=== PATIENT | male | born 1960 | race Caucasian/White ===

== ENCOUNTER 2017-07-01 14:45 | Inpatient (IN) | payer OTHER ==
[~2017-07-01] VITALS: Ht 188 cm; Wt 77.1 kg
--- NOTE | 2017-07-01 15:15 | NUR ---
Pre-Assessment Marine Painter asked to assess pt for appropriateness for admission to [facility]. Marine Painter encounters pt in intake office. Pt is disheveled and malodorous. Pt is A/O and and able to make needs known. Slow top respond and concrete in thought process, clear of speech and content. Pt endorses having had last drink last evening and has symptoms of withdrawals, chills, sweats, anxiety, GI discomfort and tremors, initial CIWA 14. Pt meets criteria and is in need of medical management for ETOH withdrawals. Will continue to monitor, support and encourgae according to plan of care.
--- NOTE | 2017-07-01 15:30 | NUR ---
Admission Pt is admitted to [facility] for medical management of ETOH withdrawals. Pt presents per wheelchair, due to unsteady gait. Pt is malodorous and disheveled. Neutral affect with anxious mood, A/O and able to make needs known. [place] in thought process and slow to respond. Pt endorses drinking 18 beers daily, and has been for approximately 1 year. Endorses having last drinks last night, 06/30/17. Pt presents with nausea, anxiety, tremors and sweats, initial CIWA 14. Pt sees Dr. Parr in [place] for his Ritalin prescriptions, due to ADD. This is pt's first attempt at sobriety and has never been to treatment. Pt endorses a PMH of HTN and PPH of ADD. Denies any history of seizures. Pt denies any HI/SI or A/VH or any other associated symptoms. Pt denies any previous psychiatric hospitalizations or 5150's or any previous suicide attempts. Pt states he is here today, " because I am an alcoholic." Addendum: 07/01/17 at 1822 by ROSLYN MIGUEL RN Pt admitted to having fallen up to twice within the last 2 days and has a couple of scabs/lacerations on his head. Pt left foot is pale and appears to have been "water logged". As hand sign writer was taking pictures of pt's foot, pt asked hand sign writer, "could that be from peeing down my leg and not showering for a week?" Pictures taken and placed in chart. Wound care order placed for possible fungus.
[2017-07-01] MEDS ORDERED: ONDANSETRON ODT 4 MG TAB.RAPDIS SL PRN (15:45)
[2017-07-01] MEDS ORDERED: ONDANSETRON 4 MG/2 ML VIAL IM PRN (15:45)
[2017-07-01] MEDS ORDERED: LOPERAMIDE HCL 2 MG CAPSULE PO PRN (15:45)
[2017-07-01] MEDS ORDERED: MAGNESIUM HYDROXIDE 30 ML LIQUID UDC PO PRN (15:45)
[2017-07-01] MEDS ORDERED: ACETAMINOPHEN 325 MG TABLET PO PRN (15:45)
[2017-07-01] MEDS ORDERED: LORAZEPAM 1 MG TABLET PO PRN (15:45)
[2017-07-01] MEDS ORDERED: NICOTINE POLACRILEX 4 MG GUM-PK OF TEN BC PRN (15:45)
[2017-07-01] MEDS ORDERED: NICOTINE 14 MG/24HR PATCH TD PRN (15:45)
[2017-07-01] MEDS ORDERED: MAG HYDROX/AL HYDROX/SIMETH 30 ML LIQUID UDC PO PRN (15:45)
[2017-07-01] MEDS ORDERED: diphenhydrAMINE 50 MG CAPSULE PO PRN (15:45)
[2017-07-01] MEDS ORDERED: MIRALAX 17 GM POWD.PACK PO PRN (15:45)
[2017-07-01] MEDS ORDERED: THIAMINE HCL 200 MG/2 ML VIAL IM ONE (15:45)
[2017-07-01] MEDS ORDERED: IBUPROFEN 400 MG TABLET PO PRN (15:45)
[2017-07-01] MEDS ORDERED: LORAZEPAM 2 MG/1 ML VIAL IM PRN (15:45)
[2017-07-01] MEDS: LORAZEPAM 1 MG TABLET PO SCH ×2 (16:15→20:11)
[2017-07-01] MEDS: CLONIDINE HCL 0.1 MG TABLET PO PRN ×2 (16:15→23:15)
--- NOTE | 2017-07-01 16:15 | NUR ---
PRN Clonidine and Imodium Pt complain of first bout of diarrhea and BP is 171/99 on admission, with history of HTN. Asphalt Distributor Tender administers Clonidine(HTN) and Imodium(diarrhea) per order with pt tolerating well. Will continue to monitor, support and encourage according to plan of care.
[2017-07-01 16:20] LABS: *AMPHETAMINE, URINE NEGATIVE (NEGATIVE); *BARBITURATE, URINE NEGATIVE (NEGATIVE); *CANNABINOID, URINE NEGATIVE (NEGATIVE); *COCCAINE, URINE NEGATIVE (NEGATIVE); *OPIATE, URINE NEGATIVE (NEGATIVE); *PHENCYCLIDINE SCREEN,URINE NEGATIVE (NEGATIVE)
[2017-07-01 16:49] LABS: BASOPHILS # (AUTO) 0.1 K/uL (0.0-8.0); BASOPHILS % (AUTO) 0.5 % (0.0-2.0); EOSINOPHILS % (AUTO) 0.1 % (0.0-7.0); HEMATOCRIT 44.3 % (36.7-47.1); HEMOGLOBIN 15.1 g/dL (12.5-16.3); LYMPHOCYTES # (AUTO) 0.8 K/uL (20.0-40.0); LYMPHOCYTES % (AUTO) 6.4 % (20.5-51.5); MEAN CORPUSCULAR HEMOGLOBIN 34.1 uug (23.8-33.4); MEAN CORPUSCULAR HGB CONC 34 g/dL (32.5-36.3); MEAN CORPUSCULAR VOLUME 99.8 fL (73.0-96.2); MONOCYTES # (AUTO) 1.3 K/uL (2.0-10.0); MONOCYTES % (AUTO) 9.8 % (0.0-11.0); NEUTROPHILS % (AUTO) 83.2 % (38.5-71.5); PLATELET COUNT (AUTO) 157 K/uL (152-348); RED BLOOD CELL COUNT(AUTO) 4.44 MIL/uL (4.06-5.63); WHITE BLOOD COUNT (AUTO) 13.2 K/uL (3.6-10.2)
[2017-07-01 17:04] LABS: MAGNESIUM 1.8 mg/dL (1.8-2.4); POTASSIUM 4.2 mmol/L (3.5-5.1); TOTAL PROTEIN, SERUM 8.5 g/dL (6.4-8.2)
[2017-07-01 17:15] VITALS: BP 146/85
--- NOTE | 2017-07-01 17:15 | NUR ---
PRN Re-Assessment Pt is resting in room, with eyes closed. No further complaints of diarrhea. BP on recheck is 146/85. Will continue to monitor, support and encourage according to plan of care.
[2017-07-01] MEDS ORDERED: LOSA100T15 PO (18:29)
[2017-07-01] MEDS ORDERED: METH20TA PO (18:29)
--- NOTE | 2017-07-01 19:12 | NUR ---
End of Shift Rice Drier Operator provided report on 56 year old male admitted to [facility] this afternoon by automobile service writer, for medical management of ETOH withdrawals. Pt endorses NKDA, full code and regular diet. Endorses PMH of HTN, PPH of ADD. Started on an Ativan taper and administered Clonidine and Imodium PRN on my shift. Last CIWA 11 recorded at 1630. Bed in low position, with wheels locked and side rails up x2.
--- NOTE | 2017-07-01 19:30 | NUR ---
START OF SHIFT Pt is a 56 y/o male admitted today for ETOH withdrawal. Pt is on a 5 day Ativan taper that started on today, tolerating well. Last CIWA 11 and PRN Clonidine and Imodium administered during day shift. Pt is on a 1:1 for unsteady gait. Upon assessment pt presents with anxiety, severe gross tremors, chills, sweats, flushed skin, restlessness, increased BP and HR, unstable gait, intermittent nausea, lower extremity numbness, difficulty concentrating, difficulty falling and staying asleep, diarrhea, unkempt room and is odorous and withdrawn. Encouraged pt to take a shower, pt refused. Pt has scabes/lacerations on scalp, excoriation on whole left foot and a bruised left eye. Bottom of left foot presents with white/yellow maceration with pin shaped brown spots and is odorous. Arch of foot has erythema. Wound consult ordered. Pt does not recall falling, states "I don't remember what happened because I drank way too much, I think it was from two days ago." In regards to left foot, pt states "I peed down my leg and I haven't changed my socks in a week." Medications due. Safety measures in place. Call light within reach. Will continue to monitor.
[2017-07-01 20:00] VITALS: BP 159/96
--- NOTE | 2017-07-01 20:11 | NUR ---
PRN BENADRYL ADMINISTRATION Pt requests sleep aid. Safety measures in place. Call light within reach. Will continue to monitor.
--- NOTE | 2017-07-01 21:11 | NUR ---
PRN BENADRYL REASSESSMENT Pt laying in bed with eyes closed, medication noted effective. Safety measures in place. Call light within reach. Will continue to monitor.
[2017-07-01] MEDS: LORAZEPAM 1 MG TABLET PO PRN (22:16)
--- NOTE | 2017-07-01 22:16 | NUR ---
PRN ATIVAN 1 MG ADMINISTRATION CIWA 11, orders to give Ativan 1 mg. Pt woke up and presents with anxiety, restlessness, gross tremors and lower extremity numbness. Safety measures in place. Call light within reach. Will continue to monitor.
--- NOTE | 2017-07-01 23:15 | NUR ---
PRN ATIVAN REASSESSMENT AND CLONIDINE ADMINISTRATION CIWA 10, pt still presents with anxiety, restlessness, tremors and lower extremity numbness, reports mild improvement in anxiety. BP 147/90 and HR 111, orders to give Clonidine. Safety measures in place. Call light within reach. Will continue to monitor.
[2017-07-02] VITALS: BP 141/91
--- NOTE | 2017-07-02 00:15 | NUR ---
PRN CLONIDINE REASSESSMENT BP 141/91 HR 85, BP reduced slightly. Safety measures in place. Call light within reach. Will continue to monitor.
--- NOTE | 2017-07-02 00:24 | NUR ---
PRN ATIVAN 2 MG ADMINISTRATION CIWA 13. Pt reports restlessness, anxiety, tremors, chills, sweats, agitation and lower extremity numbness. Safety measures in place. Call light within reach. Will continue to monitor.
--- NOTE | 2017-07-02 01:24 | NUR ---
PRN ATIVAN 2 MG REASSESSMENT Pt laying in bed with eyes closed, medication noted effective. Safety measures in place. Call light within reach. Will continue to monitor.
[2017-07-02 04:00] VITALS: BP 143/93
--- NOTE | 2017-07-02 04:00 | NUR ---
CIWA DEFERRED Pt laying in bed with eyes closed, CIWA deferred, to be assessed when pt is awake per orders. Respirations even and unlabored. Safety measures in place. Call light within reach. Will continue to monitor.
--- NOTE | 2017-07-02 07:10 | NUR ---
END OF SHIFT Pt is a 56 y/o male admitted on 07/01/17 for ETOH withdrawal. Pt is on a 5 day Ativan taper that started on 07/01/17, tolerating well. Pt is on a 1:1 for unsteady gait/safety. Pt presented with anxiety, severe gross tremors, chills, sweats, flushed skin, restlessness, increased BP and HR, unstable gait, intermittent nausea, lower extremity numbness, difficulty concentrating, difficulty falling and staying asleep, diarrhea, unkempt room and is odorous and withdrawn. Encouraged pt to take a shower, pt refused. Pt has scabs/lacerations on scalp, excoriation on whole left foot and a bruised left eye. Bottom of left foot presents with white/yellow maceration with pin shaped brown spots and is odorous. Wound consult ordered. Pt woke up multiple times throughout shift. Scheduled medications and PRN Benadryl, Ativan 1 mg, Ativan 2 mg and Clonidine administered, effective in S/S of withdrawal AEB CIWA 16 lowered to CIWA 13 during shift. Pt slept 6 hours. Intake 1300 ml, void x 1, stool x 0. Safety measures in place. 1:1 sitter at bedside. Pts needs have been met. Endorsed to day shift nurse.
--- NOTE | 2017-07-02 07:11 | NUR ---
Start of Shift Puncher received report on 56 year old male admitted to [facility] on 07/01/17 for medical management of ETOH withdrawals. Pt endorses NKDA, full code and regular diet. PMH of HTN and PPH of ADD. Pt currently on an Ativan taper with last CIWA 13 per NOC. PRN Benadryl(insomnia), Ativan 1mg(withdrawals), Ativan 2mg(withdrawals) and Clonidine(HTN) administered on NOC, per report. Puncher encounters pt in pts room, pt is resting with eyes closed, rise and fall of chest noted. Even and unlabored respirations. Bed in low position, with wheels locked, and side rails up x2. Will continue to monitor, support and encourage according to plan of care.
[2017-07-02 08:45] VITALS: BP 149/94
[2017-07-02] MEDS ORDERED: LOSARTAN POTASSIUM 50 MG TABLET PO SCH ×2 (09:00→21:00)
[2017-07-02] MEDS ORDERED: TUBERCULIN,PURIF.PROT.DERIV. 5 TU/0.1 ML TEST ID ONE (09:00)
[2017-07-02] MEDS: FOLIC ACID 1 MG TABLET PO SCH (09:25)
[2017-07-02] MEDS: LOPERAMIDE HCL 2 MG CAPSULE PO PRN (09:26)
[2017-07-02] MEDS: THIAMINE HCL 100 MG TABLET PO SCH (09:26)
[2017-07-02] MEDS: LORAZEPAM 1 MG TABLET PO SCH ×3 (09:26→20:15)
[2017-07-02] MEDS: MULTIVITAMINS,THERAPEUTIC TABLET PO SCH (09:26)
--- NOTE | 2017-07-02 09:26 | NUR ---
PRN Imodium Pt requested Imodium for diarrhea, service writer administered per order with pt tolerating well. Will continue to monitor, support and encourage according to plan of care.
--- NOTE | 2017-07-02 10:26 | NUR ---
PRN Re-Assessment Pt has not had any BM since administration of medication. Will continue to monitor, support and encourage according to plan of care.
[2017-07-02] MEDS ORDERED: hydrALAZINE HCL 50 MG TABLET PO PRN (12:00)
[2017-07-02 12:43] VITALS: BP 144/93
[2017-07-02 16:56] VITALS: BP 132/93
--- NOTE | 2017-07-02 18:58 | NUR ---
End of Shift Wind Turbine Engineer provided report on 56 year old male admitted to [facility] on 07/01/17 for medical management of ETOH withdrawals. Pt endorses NKDA, full code and regular diet. PMH of HTN and PPH of ADD. Pt currently on 1:1 staffing, d/t unsteady gait and unsteady transfer. Pt currently on an Ativan taper with last CIWA 8 at 1630. PRN Imodium(Diarrhea) administered this shift. Pt has edisodes of diarrhea, has had chills and sweats and anxiety, tremors have improved. Pt is slow to respond, matter of fact, concrete in nature. Flat affect with anxious mood. Bed in low position, with wheels locked, and side rails up x2.
--- NOTE | 2017-07-02 19:30 | NUR ---
START OF SHIFT Pt is a 56 y/o male admitted on 07/01/17 for ETOH withdrawal. Pt is on a 5 day Ativan taper that started on today, tolerating well. Last CIWA 8 and PRN Imodium administered during day shift. Pt is on a 1:1 for unsteady gait/safety. Upon assessment pt presents with anxiety, tremors, intermittent chills, intermittent sweats, flushed skin, restlessness, increased BP and HR, flat affect, unstable gait, diarrhea, lower extremity numbness, difficulty concentrating, difficulty falling and staying asleep, unkempt room and is odorous and withdrawn. Pt has scabs/lacerations on scalp, excoriation on whole left foot and a bruised left eye. Bilateral feet presents with fungal infection, started on Lamisil cream today. Pt uses wheelchair for mobility. Medications due. Safety measures in place. Call light within reach. Will continue to monitor.
[2017-07-02 20:00] VITALS: BP 145/85
[2017-07-02] MEDS: TERBINAFINE CREAM 24 GM TUBE TP SCH (20:15)
[2017-07-02] MEDS: TRAZODONE 50 MG TABLET PO PRN (20:15)
--- NOTE | 2017-07-02 20:15 | NUR ---
PRN TRAZODONE ADMINISTRATION Pt requests sleep aid. Safety measures in place. Call light within reach. Will continue to monitor.
--- NOTE | 2017-07-02 21:15 | NUR ---
PRN TRAZODONE REASSESSMENT Pt laying in bed with eyes closed, medication noted effective. Safety measures in place. Call light within reach. Will continue to monitor.
[2017-07-03] VITALS (8 sets, daily range): BP systolic 106–145; BP diastolic 72–105
--- NOTE | 2017-07-03 | NUR ---
PRN ATIVAN 1 MG AND CLONIDINE ADMINISTRATION BP 140/97 HR 105. CIWA 11, orders to give Ativan 1 mg. Pt presents with restlessness, agitation, anxiety, tremors. Safety measures in place. Call light within reach. Will continue to monitor. Addendum: 07/03/17 at 0117 by RAUL ERVIN RN TIME AMEND FOR 011
[2017-07-03] MEDS: LORAZEPAM 1 MG TABLET PO PRN ×2 (01:11→03:38)
[2017-07-03] MEDS: CLONIDINE HCL 0.1 MG TABLET PO PRN ×2 (01:11→12:17)
--- NOTE | 2017-07-03 02:11 | NUR ---
PRN ATIVAN AND CLONIDINE REASSESSMENT BP 136/84, HR 82. Pt laying in bed with eyes closed, CIWA deferred for reassessment of Ativan. Safety measures in place. Call light within reach. Will continue to monitor.
[2017-07-03] MEDS: LOPERAMIDE HCL 2 MG CAPSULE PO PRN ×2 (03:54→20:11)
--- NOTE | 2017-07-03 03:54 | NUR ---
PRN ATIVAN 1 MG AND IMODIUM ADMINISTRATION CIWA 11, pt presents with anxiety, restlessness and tremors. PRN Ativan 1 mg administered at 0338. Pt had an episode of watery diarrhea. Pt unable to reach bathroom. Pt cleaned and pat dry. Skin dry and intact. Safety measures in place. Call light within reach. Will continue to monitor. Imodium administered at 0354. Safety measures in place. Call light within reach. Will continue to monitor.
--- NOTE | 2017-07-03 04:54 | NUR ---
PRN ATIVAN AND IMODIUM REASSESSMENT Pt laying in bed with eyes closed, medications noted effective. No further episodes of diarrhea. Safety measures in place. Call light within reach. Will continue to monitor.
--- NOTE | 2017-07-03 07:01 | NUR ---
END OF SHIFT Pt is a 56 y/o male admitted on 07/01/17 for ETOH withdrawal. Pt is on a 5 day Ativan taper that started on 07/01/17, tolerating well. Pt presented with anxiety, tremors, intermittent chills, intermittent sweats, flushed skin, restlessness, increased BP and HR, flat affect, unstable gait, diarrhea, lower extremity numbness, difficulty concentrating, difficulty falling and staying asleep, unkempt room and is odorous and withdrawn. During episode of watery diarrhea, pt unable to make it to the toilet, pt cleaned and dried. Bilateral feet presents with fungal infection, started on Lamisil cream. Pt uses wheelchair for mobility. Scheduled medications and PRN Trazodone, Ativan 1 mg x 2, Clonidine and Imodium administered, effective in S/S of withdrawal AEB CIWA 14 lowered to CIWA 10 during shift. Pt slept 4 hours. Intake 1500 ml, void x 4, stool x 1. Safety measures in place. 1:1 sitter at bedside. Pts needs have been met. Endorsed to day shift nurse.
--- NOTE | 2017-07-03 07:20 | NUR ---
START OF SHIFT: PATIENT IS A 56 YR OLD MALE ADMITTED TO [facility] ON 07/01/17 FOR A MEDICALLY SUPERVISED WITHDRAWAL FROM ALCOHOL, HE IS ON A 5 DAY ATIVAN TAPER AND THIS IS DAY 3. PATIENT IS ON A 1:1 FOR SAFETY AND UNSTEADY GAIT. PATIENT HAD 1 DOSE OF DIARRHEA ON PM SHIFT AND RECEIVED IMMODIUM PO. PATIENT IS AWAKE IN BED AT THIS TIME AND PRESENTS WITH A BLACK LEFT EYE AND BRUISES ON HIS FACE WHICH HE SAYS " PROBABLY WHEN I FELL AT HOME BEFORE I GOT HERE ". PRN MEDS REQUIRED ON PM SHIFT : CLONIDINE, ATIVAN 1MG X 2, IMMODIUM AND TRAZADONE. PT SLEPT FOR 4 HOURS AND LAST CIWA WAS 10 @ 0400. PATIENT APPEARS ANXIOUS WITH MODERATE HAND TREMORS AND RESTLESSNESS. WILL CONTINUE TO FOLLOW MD PLAN OF CARE.
[2017-07-03] MEDS: FOLIC ACID 1 MG TABLET PO SCH (08:40)
[2017-07-03] MEDS: MULTIVITAMINS,THERAPEUTIC TABLET PO SCH (08:40)
[2017-07-03] MEDS: THIAMINE HCL 100 MG TABLET PO SCH (08:40)
[2017-07-03] MEDS: LOSARTAN POTASSIUM 50 MG TABLET PO SCH (08:41)
[2017-07-03] MEDS: TERBINAFINE CREAM 24 GM TUBE TP SCH ×2 (08:43→20:15)
[2017-07-03] MEDS ORDERED: LORAZEPAM 1 MG TABLET PO SCH ×2 (09:00→21:00)
--- NOTE | 2017-07-03 12:15 | NUR ---
PRN HYDRALAZINE/CLONIDINE HYDRALAZINE 50MG PO AND CLONIDINE 0.1MG PO GIVEN FOR BP 145/102 WILL RECHECK IN 1 HR
[2017-07-03] MEDS: LORAZEPAM 1 MG TABLET PO SCH ×2 (12:16→16:32)
--- NOTE | 2017-07-03 13:15 | NUR ---
PRN REASSESS BP 114/82 CLONIDINE 0.1MG PO AND HYDRALAZINE 50MG PO EFFECTIVE, WILL CONTINUE TO MONITOR
--- NOTE | 2017-07-03 13:33 | NUR ---
STOOL SAMPLE/C DIFF TO BE COLLECTED PER MD ORDER DUE TO PT DIARRHEA PLS COLLECT STOOL SAMPLE TO SEND TO LAB FOR C DIFF
--- NOTE | 2017-07-03 14:35 | NUR ---
WOUND CARE CONSULT: PT PRESENTS WITH DRY SCABS TO TOP OF HEAD AND DOTTED RASH TO FEET. PT USING LAMISIL FOR FEET. DEFER TO MD. WILL SEE PRN. NO OPEN WOUNDS NOTED. PT REFUSED FULL SKIN ASSESSMENT OF BACK AND BUTTOCKS. Addendum: 07/03/17 at 1436 by JAYDEN PEOPLES RN Amended: Links added.
--- NOTE | 2017-07-03 15:42 | NUR ---
STOOL TO LAB STOOL SAMPLE COLLECTED AND SENT TO LAB
[2017-07-03] MEDS ORDERED: AMLODIPINE 5 MG TABLET PO ONE (17:00)
--- NOTE | 2017-07-03 18:41 | NUR ---
END OF SHIFT : PATIENT IS A 56 YR OLD MALE ADMITTED TO [facility] ON 07/01/17 FOR A MEDICALLY SUPERVISED WITHDRAWAL FROM ALCOHOL. PATIENT PRESENTS WITH A FLAT AFFECT, SEVERE BILATERAL HAND TREMORS, RESTLESSNESS AND UNSTEADY GAIT. PATIENT IS ON A 5 DAY ATIVAN TAPER AND THIS IS DAY 3. REPORT FROM PM SHIFT THAT PATIENT HAD DIARRHEA X2 WITHIN LAST 2 DAYS, MD ORDERED STOOL SAMPLE TO BE COLLECTED FOR C DIFF TESTING, STOOL COLLECTED AND SENT TO LAB @ 3108. PT EVALUATED PATIENTS GAIT TODAY AND WILL REASSESS ON A DAILY BASIS, MD ORDER TO USE WHEELCHAIR FOR TRANSFERS. PATIENT HAS HTN , PRN MEDS GIVEN THIS SHIFT CLONIDINE AND HYDRALAZINE WITH POSITIVE RESULTS IN DECREASING BP. CONSULTS TODAY FROM TECHNICAL EDUCATION TEACHER AND WETLAND SCIENTIST REGARDING TOENAIL FUNGUS. PATIENT HAD A FLUID INTAKE THIS SHIFT OF 1500 ML, 2 VOIDS AND 2 BM. LAST CIWA 10@ 1600. CONTINUE TO FOLLOW MD PLAN OF CARE.
--- NOTE | 2017-07-03 19:15 | NUR ---
START OF SHIFT NOTE Received endorsement from day shift nurse. Client was in room and is a/o to person, place, time, and situation. Client is on 1:1 observation for fall precautions/unsteady gait. Client appears unkempt and unshaven, and his room is disheveled. Client presents with visibly severe tremors, clammy skin, anxious mood, and agitated. Client has a black eye (left) and fungus on his feet, most noticeable on his toes. Client denies s/i and h/i. Client received no PRN's during the previous shift. V/S remained stable throughout the day. Last blood pressure was 127/88 @ 1600. Last CIWA 10 @ 1600. Call light within reach and bed in low position.
--- NOTE | 2017-07-03 20:11 | NUR ---
PRN Imodium given after pt. had 1 bought of watery diarrhea. Will reassess in 1 hour. Addendum: 07/03/17 at 2238 by CIARRA WRIGHT RN Imodium 2mg given.
[2017-07-03] MEDS: TRAZODONE 50 MG TABLET PO PRN (20:48)
--- NOTE | 2017-07-03 20:48 | NUR ---
PRN Trazadone 50mg given for sleep.
--- NOTE | 2017-07-03 21:11 | NUR ---
Reassessed pt. after giving Imodium 2mg. Diarrhea relieved no more incidents.
--- NOTE | 2017-07-03 21:11 | NUR ---
START OF SHIFT NOTE Received endorsement from day shift nurse. Client was in room and is a/o to person, place, time, and situation. Client is on 1:1 observation for fall precautions/unsteady gait. Client appears unkempt and unshaven, and his room is disheveled. Client presents with visibly severe tremors, clammy skin, anxious mood, and agitated. Client has a black eye (left) and fungus on his feet, most noticeable on his toes. Client denies s/i and h/i. Client received no PRN's during the previous shift. V/S remained stable throughout the day. Last blood pressure was 127/88 @ 1600. Last CIWA 10 @ 1600. Call light within reach and bed in low position. Addendum: 07/03/17 at 2237 by CIARRA WRIGHT RN ERROR WRONG TIME.
--- NOTE | 2017-07-03 21:46 | NUR ---
Reassessed pt. after giving Trazadone 50mg. Pt is sleeping well.
--- NOTE | 2017-07-04 | NUR ---
CIWA deferred pt. Pt. eyes closed, respirations even and unlabored.
--- NOTE | 2017-07-04 04:08 | NUR ---
CIWA and V/S deferred. Pt.'s eyes closed and breathing is unlabored and even.
--- NOTE | 2017-07-04 06:48 | NUR ---
END OF SHIFT NOTE Endorsed patient to oncoming nurse. Pt is in his room and is a/o to person, place, time, and situation. Pt is on 1:1 observation for fall precautions/unsteady gait. Pt appears unkempt and unshaven. Pt continues to present with visibly severe tremors, clammy skin, anxious mood, and agitated. Pt. has abrasion on right foot, MD has ordered triple antibiotic ointment to start 07/04. Pt. has blood blister on left foot, MD has ordered betadine swabs to start on 07/04. Pt was given PRN Imodium 2mg @2010 for 1 bought of liquid diarrhea and reassessed @ 2110 with no further incidents, Pt. was also given PRN Trazadone 50mg @ 2047 for sleep and when reassessing @2147 pt.s eyes were closed and breathing was even and unlabored. Pt. had stool sample taken and sent to lab for C-Diff test. Pt.s fluid intake [id number], voided 2 times, and had 2 bowel movement. Pt.s V/S remained stable throughout shift. Pt. slept 7 hours. Last CIWA 13 @ 1999. Call light is within reach and Pt. will continue to be monitored.
--- NOTE | 2017-07-04 07:35 | NUR ---
START OF SHIFT PT IS A 56 Y/O M ADMITTED ON 07/01/17 FOR MEDICALLY SUPERVISED ETOH WITHDRAWAL. PT IS ON A 5 DAY ATIVAN TAPER STARTED ON 07/01/17 AND TOLERATING WELL. PT CONTINUES ON A 1:1 SITTER FOR UNSTEADY GAIT. PT HAS A UNSHAVEN, DISHEVELED APPEARANCE, PT IS A/OX4, RESPIRATIONS EVEN AND UNLABORED, PT PRESENTS GROSS/FINE TREMORS, ANXIETY, RESTLESSNESS, AGITATION, DIAPHORESIS, CLAMMY SKIN. PT HAS HAD AN EPISODE OF LIQUID DIARRHEA; UPON ENTERING ROOM DIARRHEA WAS ON BED AND ON FLOOR. PT HAS A BLACK EYE ON L EYE, ABRASIONS ON R FOOT AND BLOOD BLISTER ON LEFT FOOT. LAST CIWA 13 @1999. ENCOURAGED PT TO INCREASE FLUIDS FOR HYDRATION AND TO FACILITATE IN DETOX. SIDE RAILS UPX2, BENJAMÍN N LOW POSITION, CALL LIGHT WITHIN REACH. SAFETY MEASURES IN PLACE. WILL CONTINUE TO MONITOR.
[2017-07-04 08:00] VITALS: BP 136/86
[2017-07-04] MEDS: MULTIVITAMINS,THERAPEUTIC TABLET PO SCH (08:21)
[2017-07-04] MEDS: FOLIC ACID 1 MG TABLET PO SCH (08:22)
[2017-07-04] MEDS: LOPERAMIDE HCL 2 MG CAPSULE PO PRN (08:22)
[2017-07-04] MEDS: AMLODIPINE 5 MG TABLET PO SCH (08:22)
[2017-07-04] MEDS: THIAMINE HCL 100 MG TABLET PO SCH (08:22)
[2017-07-04] MEDS: LOSARTAN POTASSIUM 50 MG TABLET PO SCH (08:23)
[2017-07-04] MEDS: TERBINAFINE CREAM 24 GM TUBE TP SCH ×2 (08:26→21:04)
[2017-07-04] MEDS ORDERED: LORAZEPAM 1 MG TABLET PO SCH ×3 (09:00→21:00)
[2017-07-04] MEDS: NEOMY/BACITRAC/POLYMI OINT 28.35 GM TUBE TOP SCH (09:11)
[2017-07-04] MEDS ORDERED: PRAZOSIN HCL 1 MG CAPSULE PO PRN (11:30)
[2017-07-04 12:00] VITALS: BP 133/88
[2017-07-04 12:13] LABS: HEPATITIS B SURFACE AG Negative (Negative)
--- NOTE | 2017-07-04 15:00 | NUR ---
C-DIFF CULTURE RESULTS NEGATIVE.
[2017-07-04 16:00] VITALS: BP 116/77
--- NOTE | 2017-07-04 18:47 | NUR ---
END OF SHIFT PT CONTINUES ON A 1:1 SITTER FOR UNSTEADY GAIT. PT AMBULATES IN WHEELCHAIR AND WALKER; PT RECEIVED A WALKER TODAY FROM PT. ENCOURAGED PT TO EXERCISE WALKER AROUND UNIT. PT'S LAST CIWA 12 @1600. PT HAS RECEIVED 0 PRNS DURING SHIFT. PT ATE 75/75/100% OF MEALS. FLUID INTAKE 1400 ML, VOIDED X4, BM X1. PT HAD 1 EPISODE OF DIARRHEA ON SHIFT. C-DIFF CULTURE IS NEG. WOUND TX HAS BEEN DONE DURING SHIFT ON R TOE AND LEFT FOOT. PT HAS BEEN COMPLIANT WITH MED REGIMEN AND TX PLAN. PT ATTENDED GROUPS. SAFETY MEASURES IN PLACE. WILL GIVE ENDORSEMENT TO WINCHMAN/CRANE OPERATOR.
[2017-07-04 20:00] VITALS: BP 114/79
--- NOTE | 2017-07-04 20:00 | NUR ---
Start of Shift Note Received a 56 y/o male px, admitted for medically supervised withdrawal from ETOH. Px was placed on 5 day Ativan taper started on 07/01/2017. Px is tolerating it. Last reported CIWA 12 by AM shift nurse. Px is on 1 to 1 for unsteady gait. During the rounds at 1999, px is awake on bed in fowlers position. Px appears disheveled, untidy, unshaven with dirty finger and toe nails. Unfinished drinks and snacks noticed all over the table. Soiled socks noted on the floor. Px stated "my anxiety now is 4/10". Bilateral hand tremors noted. Bed on lowest position, side rails up 2x and call light within reach. We'll continue to monitor.
[2017-07-04] MEDS: GABAPENTIN 300 MG CAPSULE PO SCH (21:04)
[2017-07-05] VITALS: BP 132/76
[2017-07-05 04:00] VITALS: BP 125/88
--- NOTE | 2017-07-05 04:00 | NUR ---
CIWA deferred CIWA deferred at 0000 and 0400 due to the px is asleep, to assess if the px is awake per doctor's order. We'll continue to monitor.
--- NOTE | 2017-07-05 07:06 | NUR ---
End of Shift Note During the shift, no PRN medication given. Px is still on 1 to 1 for unsteady gait. Pxs oral intake is 1,500 ml, voided 3x, BM 1x. Px slept for total of 7 hours. At 0630, px is asleep on bed in right side lying position. Last CIWA 7. Bed on lowest position, side rails up 2x and call light within reach. We'll continue to monitor. Px endorsed to AM shift nurse.
--- NOTE | 2017-07-05 07:14 | NUR ---
START OF SHIFT: PATIENT IS A 56YR OLD MALE ADMITTED TO [facility] ON 07/01/17 FOR A MEDICALLY SUPERVISED WITHDRAWAL FROM ALCOHOL. HE IS ON AN ATIVAN TAPER AND THIS IS DAY 4. PATIENT DID NOT REQUIRED NOR REQUESTED ANY PRN MEDS ON NURSING SUPPORT WORKER. CONTINUE WITH TRIPLE ANTIBIOTIC CREAM TO RIGHT TOE AND BETADINE TO LEFT FOOT AND LAMISIL CREAM TO BOTH FEET AND TOES FOR FUNGAL INFECTION. PATIENT SLEPT FOR 7 HOURS AND IS CURRENTLY STILL ASLEEP , BREATHING EVEN AND UNLABORED, SITTER AT BEDSIDE FOR PATIENT SAFETY DUE TO UNSTEADY GAIT. LAST CIWA 7. CONTINUE TO FOLLOW MD PLAN OF CARE.
[2017-07-05 08:00] VITALS: BP 122/88
[2017-07-05] MEDS ORDERED: LORAZEPAM 1 MG TABLET PO SCH (09:00)
[2017-07-05] MEDS: THIAMINE HCL 100 MG TABLET PO SCH (09:12)
[2017-07-05] MEDS: MULTIVITAMINS,THERAPEUTIC TABLET PO SCH (09:12)
[2017-07-05] MEDS: FOLIC ACID 1 MG TABLET PO SCH (09:13)
[2017-07-05] MEDS: LOSARTAN POTASSIUM 50 MG TABLET PO SCH (09:13)
[2017-07-05] MEDS: AMLODIPINE 5 MG TABLET PO SCH (09:13)
[2017-07-05] MEDS: GABAPENTIN 300 MG CAPSULE PO SCH ×2 (09:13→21:02)
[2017-07-05] MEDS: TERBINAFINE CREAM 24 GM TUBE TP SCH ×2 (09:14→21:02)
[2017-07-05] MEDS: LORAZEPAM 1 MG TABLET PO SCH ×3 (09:15→21:02)
[2017-07-05] MEDS: NEOMY/BACITRAC/POLYMI OINT 28.35 GM TUBE TOP SCH (09:15)
[2017-07-05 12:00] VITALS: BP 113/73
[2017-07-05] MEDS ORDERED: LOSA50TA3 PO (12:50)
[2017-07-05] MEDS ORDERED: GABA-534 PO (12:50)
[2017-07-05] MEDS ORDERED: CLON0.1T14 PO (12:50)
[2017-07-05] MEDS ORDERED: TRAZ-144 PO (12:50)
[2017-07-05] MEDS ORDERED: IBUP-1953 PO (12:50)
[2017-07-05] MEDS ORDERED: AMLO5TAB2 PO (12:50)
[2017-07-05 16:00] VITALS: BP 110/66
--- NOTE | 2017-07-05 19:16 | NUR ---
END OF SHIFT : PATIENT IS A 56 YR OLD MALE ADMITTED TO [facility] ON 07/01/17 FOR A MEDICALLY SUPERVISED WITHDRAWAL FROM ALCOHOL. PATIENT PRESENTS WITH MODERATE BILATERAL HAND TREMORS, RESTLESSNESS AND UNSTEADY GAIT. PATIENT IS ON A 5 DAY ATIVAN TAPER AND THIS IS DAY 4. MD ORDER TO USE WHEELCHAIR FOR TRANSFERS DUE TO UNSTEADY GAIT, PT HAS BEEN EVALUATING PATIENT EACH DAY AND HIS GAIT IS MUCH IMPROVED AND IS ENCOURAGED TO AMBULATE IN HALLWAYS WITH WALKER. NO PRN MEDICATIONS WERE REQUIRED OR REQUESTED THIS SHIFT. PATIENT HAD A FLUID INTAKE THIS SHIFT OF 1500 ML, 2 VOIDS AND 0 BM. LAST CIWA 8 @ 1600. CONTINUE TO FOLLOW MD PLAN OF CARE. PATIENT CONTINUES TO BE ON A 1:1 WITH SITTER AT ALL TIMES. ENDORSED TO NIGHT NURSE.
--- NOTE | 2017-07-05 19:30 | NUR ---
Start of Shift Note Received a 56 y/o male px, admitted for medically supervised withdrawal from ETOH. Px was placed on 5 day Ativan taper started on 07/01/2017. Px is tolerating it. Last reported CIWA 8 by AM shift nurse. Px is still on 1 to 1 for unsteady gait. During the rounds at 1930, px is awake on bed in fowlers position. Px appears disheveled, untidy, with dirty finger and toe nails. Room is odorous. Unfinished drinks, snacks and soiled clothes noticed all over the room. Px stated "my anxiety now is 7/10". Bilateral hand tremors noted. Bed on lowest position, side rails up 2x and call light within reach. We'll continue to monitor.
[2017-07-05 20:00] VITALS: BP 129/88
[2017-07-05] MEDS: LOPERAMIDE HCL 2 MG CAPSULE PO PRN (20:06)
--- NOTE | 2017-07-05 20:06 | NUR ---
PRN Imodium Px complained of loose stool. Imodium 2 mg/cap, 1 cap given PO for diarrhea. We'll continue to monitor.
[2017-07-06] VITALS: BP 133/84
[2017-07-06] MEDS: TRAZODONE 50 MG TABLET PO PRN ×2 (00:23→21:46)
--- NOTE | 2017-07-06 00:23 | NUR ---
PRN Trazodone Px requested for sleeping pill. Px received Trazodone 50 mg/tab, 1 tab PO as PRN medicine for insomnia. We'll continue to monitor.
[2017-07-06 04:00] VITALS: BP 126/79
--- NOTE | 2017-07-06 04:00 | NUR ---
CIWA deferred CIWA deferred due to the px is asleep, to assess if the px is awake per doctor's order. We'll continue to monitor.
--- NOTE | 2017-07-06 07:13 | NUR ---
End of Shift Note During the shift at 2005, px received Imodium 2 mg PO for loose stool, it was effective. At 22, px received Trazodone 50 mg PO for insomnia. Px's oral intake is 1,300 ml, voided 5x, with BM 2x. Px slept for total of 6 hours. At 0630, px is asleep on bed in right side lying position. Last CIWA 9. Bed on lowest position, side rails up 2x and call light within reach. We'll continue to monitor. Px endorsed to AM shift nurse.
--- NOTE | 2017-07-06 07:30 | NUR ---
START OF SHIFT Pt 56 y/o male admitted for etoh withdrawal. Pt received in room on bed awake. Pt alert and oriented to name, place, and time. Perrla. Skin warm and moist to touch. Respirations even and unlabored. Bilateral hand tremors noted. Pt with sitter 1:1 for safety. Pt appears disheveled and unkempt. Clothes and empty water bottles scattered throughout the room. Encouraged to maintain hygiene. It was reported that pt slept for 6 hours last night. Pt is on a 5 day ativan taper and is on day 5. Bed on lowest position with side rails x2 up for safety. Call light within reach.
[2017-07-06 08:00] VITALS: BP 133/87
[2017-07-06] MEDS ORDERED: LORAZEPAM 1 MG TABLET PO SCH (09:00)
[2017-07-06] MEDS: LOSARTAN POTASSIUM 50 MG TABLET PO SCH (09:03)
[2017-07-06] MEDS: AMLODIPINE 5 MG TABLET PO SCH (09:03)
[2017-07-06] MEDS: GABAPENTIN 300 MG CAPSULE PO SCH ×2 (09:03→21:46)
[2017-07-06] MEDS: FOLIC ACID 1 MG TABLET PO SCH (09:03)
[2017-07-06] MEDS: NEOMY/BACITRAC/POLYMI OINT 28.35 GM TUBE TOP SCH (09:04)
[2017-07-06] MEDS: TERBINAFINE CREAM 24 GM TUBE TP SCH ×2 (09:04→21:46)
[2017-07-06] MEDS: MULTIVITAMINS,THERAPEUTIC TABLET PO SCH (09:04)
[2017-07-06] MEDS: THIAMINE HCL 100 MG TABLET PO SCH (09:04)
[2017-07-06 12:00] VITALS: BP 145/97
[2017-07-06] MEDS: CLONIDINE HCL 0.1 MG TABLET PO PRN (12:16)
--- NOTE | 2017-07-06 12:16 | NUR ---
PRN Pt with ft=567/97. Catapres po prn per MD order given and tolerated well.
--- NOTE | 2017-07-06 13:16 | NUR ---
PRN EVAL Pt with aq=636/88.
--- NOTE | 2017-07-06 15:41 | NUR ---
Therapist prompted client to continue his participation in group counseling and attend today's group counseling session at 3:30pm. Client stated he would attend group counseling today.
[2017-07-06 16:00] VITALS: BP 126/85
--- NOTE | 2017-07-06 18:42 | NUR ---
END OF SHIFT Pt 56 y/o male admitted for etoh withdrawal. Pt alert and oriented to name, place, and time. Perrla. Skin warm and moist to touch. Respirations even and unlabored. Bilateral hand tremors noted. Pt with sitter 1:1 for safety. Pt appears disheveled. Food wrappings and empty water bottles scattered throughout the room. Encouraged to maintain hygiene. Pt observed mostly isolative to room throughout the day. Pt appears with low motivation for self care. Pt was seen by MD today. Pt medication compliant and tolerated well. No ASE noted. Pt is on a 5 day ativan taper and is on day 5. Ciwas=7@0800, 5@1200, and 5@1600. Bed on lowest position with side rails x2 up for safety. Call light within reach.
--- NOTE | 2017-07-06 19:30 | NUR ---
Start of Shift Note Received a 56 y/o male px, admitted for medically supervised withdrawal from ETOH. Px is to be D/C tomorrow 07/07/2017. Px completed a 5 day Ativan taper. Px tolerated it. Last reported CIWA 5 by AM shift nurse. Px is still on 1 to 1 for unsteady gait. During the rounds at 1930, px is awake on bed in fowlers position. Px appears disheveled, untidy, with dirty finger and toe nails. Room is odorous. Unfinished drinks, snacks and soiled clothes noticed all over the room. Px stated "my anxiety is 7/10, I have a problem at home, they are selling my house." Bilateral hand tremors noted. Bed on lowest position, side rails up 2x and call light within reach. We'll continue to monitor.
[2017-07-06 20:00] VITALS: BP 138/86
--- NOTE | 2017-07-06 21:46 | NUR ---
PRN Trazodone Px received Trazodone 50 mg/tab, 1 tab PO as PRN medicine for insomnia as requested. We'll continue to monitor.
[2017-07-07] VITALS: BP 130/81
[2017-07-07 04:00] VITALS: BP 122/77
--- NOTE | 2017-07-07 04:00 | NUR ---
CIWA deferred CIWA deferred due to the px is asleep, to assess if the px is awake per doctor's order. We'll continue to monitor.
--- NOTE | 2017-07-07 07:00 | NUR ---
End of Shift Note Px is to be D/C today, 07/07/2017. During the shift at 2146, px received Trazodone 50 mg PO for insomnia. Px's oral intake is 1,000 ml, voided 4x, with No BM. Px slept for total of 6 hours. At 0630, px is asleep on bed in left side lying position. Last CIWA 8. Bed on lowest position, side rails up 2x and call light within reach. We'll continue to monitor. Px endorsed to AM shift nurse.
--- NOTE | 2017-07-07 07:16 | NUR ---
START OF SHIFT Pt 56 y/o male admitted for etoh withdrawal. Pt received in room on bed with eyes closed resting, but easily arousable to name. Pt alert and oriented to name, place, and time. Perrla. Skin warm and moist to touch. Respirations even and unlabored. Bilateral hand tremors noted. Pt with sitter 1:1 for safety. Pt appears disheveled. Empty water bottles and newspapers scattered throughout the room. Encouraged to maintain hygiene. It was reported that pt slept for 6 hours last night. Pt completed a 5 day ativan taper. Bed on lowest position with side rails x2 up for safety. Call light within reach. Pt is scheduled to be discharged today.
[2017-07-07 08:00] VITALS: BP 133/85
[2017-07-07] MEDS: LOSARTAN POTASSIUM 50 MG TABLET PO SCH (08:15)
[2017-07-07] MEDS: FOLIC ACID 1 MG TABLET PO SCH (08:15)
[2017-07-07 08:16] VITALS: BP 133/85
[2017-07-07] MEDS: THIAMINE HCL 100 MG TABLET PO SCH (08:16)
[2017-07-07] MEDS: AMLODIPINE 5 MG TABLET PO SCH (08:16)
[2017-07-07] MEDS: MULTIVITAMINS,THERAPEUTIC TABLET PO SCH (08:16)
[2017-07-07] MEDS: GABAPENTIN 300 MG CAPSULE PO SCH (08:16)
[2017-07-07] MEDS: NEOMY/BACITRAC/POLYMI OINT 28.35 GM TUBE TOP SCH (08:29)
[2017-07-07] MEDS: TERBINAFINE CREAM 24 GM TUBE TP SCH (08:29)
--- NOTE | 2017-07-07 09:35 | NUR ---
DISCHARGE Pt 56 y/o male admitted for etoh withdrawal. Pt alert and oriented to name, place, and time. Perrla. Skin warm and dry to touch. Respirations even and unlabored. Bilateral hand tremors noted slightly. VS wnl. Last ciwa=4. No belongings in cabinet and no medications noted. Pt eye contacts, prescriptions, and discharge papers packed in pt bag. Pt denies any SI/HI. Pt discharged to [facility] via private transport. No distress noted.
== END 2017-07-07 09:35 | disposition other institution (70) | DRG 895 ==
LOC: SRC 14:45
PROVIDERS: ADMIT Internal Medicine; ATTEND Internal Medicine
PROC: HZ2ZZZZ Detoxification Services for Substance Abuse Treatment (ICD-10-PCS; principal; 2017-07-01)
PROC: HZ41ZZZ Group Counseling for Substance Abuse Treatment, Behavioral (ICD-10-PCS; 2017-07-03)
PROC: HZ31ZZZ Individual Counseling for Substance Abuse Treatment, Behavioral (ICD-10-PCS; 2017-07-03)
DX: F10.232 Alcohol dependence with withdrawal with perceptual disturbance (principal); K70.10 Alcoholic hepatitis without ascites; I15.9 Secondary hypertension, unspecified; D72.829 Elevated white blood cell count, unspecified; F17.210 Nicotine dependence, cigarettes, uncomplicated; Y90.9 Presence of alcohol in blood, level not specified; M65.352 Trigger finger, left little finger; Z83.3 Family history of diabetes mellitus; Z81.1 Family history of alcohol abuse and dependence; F90.9 Attention-deficit hyperactivity disorder, unspecified type; Z79.899 Other long term (current) drug therapy; Z81.8 Family history of other mental and behavioral disorders; G47.00 Insomnia, unspecified; R19.7 Diarrhea, unspecified; R73.9 Hyperglycemia, unspecified
CPT/HCPCS: 36415; 70030-TC; 80307; 83735; 85025; 86592; 86705; 86803; 87340; 87806; 97110; 97112; 97116; A4663; G0480; J3411; Q0163